=== PATIENT | female | born 1975 | race Caucasian/White ===

== ENCOUNTER 2019-02-25 06:55 | Day surgery (SDC) | payer OTHER ==
[~2019-02-25] VITALS: Ht 160 cm; Wt 64.5 kg
[2019-02-25] MEDS ORDERED: OMEPRAZOLE (08:21)
[2019-02-25 08:23] VITALS: BP 124/70; PULSE 61; RESP 18
[2019-02-25 08:30] VITALS: Ht 160 cm; Wt 64.5 kg
[2019-02-25] MEDS ORDERED: MIDAZOLAM 1 MG/ML 2 ML INJ ONE ×2 (09:08)
[2019-02-25] MEDS ORDERED: FENTAnyl 50 MCG/ML VIAL ONE (09:09)
[2019-02-25 09:27] VITALS: BP 117/69; PULSE 58; RESP 18
--- NOTE | 2019-02-25 10:35 | CONS ---
DATE OF ADMISSION: 02/25/2019 DATE OF CONSULTATION: PATIENT NAME: CARISA MCCOY TYPE OF CONSULTATION: Preoperative gastroenterology Dear Dr. Lomeli: I thank you very much for this kind referral. HISTORY OF PRESENT ILLNESS: Ms. Carisa Mccoy is a 43-year-old female patient who has been referred to me for further evaluation of left lower quadrant abdominal pain with change in the bowel habit. No p ast history of colon neoplasm. The patient underwent abdominal ultrasound and CT scan, and they are normal. No history of inflammatory bowel disease. The patient also complains of upper abdominal dangelo n, not responding to therapy. She also has got chronic heartburn. She has been taking omeprazole wi thout any relief. Not on nonsteroidal anti-inflammatory agents. No history of gallstones or liver d isease. Not a hypertensive or diabetic. No heart disease, lung problem or kidney disease. SOCIAL HISTORY: Nonsmoker. No alcohol abuse. FAMILY HISTORY: No family history of gastrointestinal tract neoplasm. ALLERGIES: NO DRUG ALLERGIES. MEDICATIONS: Omeprazole. PHYSICAL EXAMINATION: VITAL SIGNS: She is 5 feet 3 inches tall and weighs 144 pounds. HEART: Normal heart sounds. LUNGS: Clear. ABDOMEN: Soft, no masses. Normal bowel sounds. NEUROLOGIC: Normal neurological exam. IMPRESSION: 1. Left lower quadrant abdominal pain and change in the bowel habit. 2. The patient had abdominal ultrasound and CT scan done and they are normal. 3. Upper abdominal pain and chronic heartburn, not responding to therapy with omeprazole. PLAN: Colonoscopy and upper endoscopy for further evaluation. The procedures and possible complications are well explained to the patient and family. They underst and and consent to the procedures. I thank you once again. With warmest personal regards, Dictated By: MARISELA HANSON/CARMEN Conf#: [id number] DID#: [id number]
== END 2019-02-25 11:30 | disposition home or self-care (01) ==
LOC: GIL 06:55
PROVIDERS: ATTEND Internal Medicine Gastroenterology
DX: R19.4 Change in bowel habit (principal); K64.8 Other hemorrhoids; K21.9 Gastro-esophageal reflux disease without esophagitis
CPT/HCPCS: 43239; 45378; 84703; 88305; 88312; J2250; J3010; Z7610